=== PATIENT | female | born 1970 ===

== ENCOUNTER 2017-03-25 11:02 | Emergency (ER) | payer OTHER ==
[2017-03-25 11:08] VITALS: BP 105/67; PULSE 59; RESP 18; TEMP 99; O2SAT 95
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
== END 2017-03-25 12:11 | disposition home or self-care (01) ==
DX: H72.92 Unspecified perforation of tympanic membrane, left ear (principal)